=== PATIENT | male | born 1945 | race Caucasian/White ===

== ENCOUNTER 2016-10-10 11:00 | Inpatient (IN) | payer MEDICARE ==
[2016-10-10 11:31] LABS: AUTOMATED BASOPHIL 0.7 % (0-2); AUTOMATED EOSINOPHIL 1.5 % (0-5); AUTOMATED LYMPH 27.5 % (17-44); AUTOMATED MONOCYTE 9.3 % (3-10); MPV 7.2 fL (7.4-10.4)
[2016-10-10 11:39] LABS: BLOOD UREA NITROGEN 42 MG/DL (9-20); CALCIUM 9.5 MG/DL (8.4-10.2); CALCULATED OSMOLALITY 284 MOs/Kg (270-290); CHLORIDE 102 mEq/L (98-107); GLUCOSE 164 MG/DL (70-99); SODIUM LEVEL 140 mEq/L (137-146); TOTAL PROTEIN 8.2 G/DL (6.3-8.2)
[2016-10-10 11:43] LABS: PARTIAL THROMB. TIME 34.8 SEC (22-35); PT-INR 2.7
--- NOTE | 2016-10-10 12:16 | DIRPT ---
CLINICAL DATA: Chest pain presumed cardiac, syncope EXAM: PORTABLE CHEST 1 VIEW COMPARISON: Portable exam 1122 hours compared to 07/14/2016 FINDINGS: LEFT subclavian AICD leads project over RIGHT ventricle and coronary sinus, unchanged. Additional pacing lead projects over SVC, unchanged. Enlargement of cardiac silhouette with pulmonary vascular congestion. Mediastinal contours normal. Lungs clear. No pleural effusion or pneumothorax. IMPRESSION: Enlargement of cardiac silhouette post AICD with lead positions as above. No acute abnormalities. Electronically Signed By: Jono Renner M.D. On: 10/10/2016 12:13
--- NOTE | 2016-10-10 12:16 | EDPRACDOC ---
- General Information Chief Complaint: Neuro Symptoms/Deficits Stated Complaint: HEART ACTING UP PASSED OUT NO CP Time Seen by Provider: 10/10/16 11:40 Information Source: Patient Home Medications: Home Medications Acetaminophen [Tylenol] 325 mg PO Q6H PRN 12/12/13 Amiodarone HCl [Pacerone] 100 mg PO HS 12/12/13 Amiodarone HCl [Pacerone] 200 mg PO QAM 12/12/13 Aspirin (Enteric Coated) [Halfprin] 81 mg PO QAM 12/12/13 Calcium Carbonate/Vitamin D3 [Caltrate w/ Vit D Tab (600mg/400IU)] 1 tab PO QAM 12/12/13 Cholecalciferol (Vitamin D3) [Vitamin D3 (cholecalciferol)] 2,000 units PO QAM 12/12/13 Dextran 70/Hypromellose [Artificials Tears Drops] 1 - 2 drops OU Q3H PRN Digoxin [Lanoxin, Digitek] 125 mcg PO QAM 12/12/13 Diphenhydramine HCl [Benadryl Allergy] 25 mg PO DAILY PRN 12/12/13 Fenofibrate [Lofibra] 160 mg PO BID 12/12/13 Furosemide [Lasix] 20 mg PO HS 12/12/13 Furosemide [Lasix] 40 mg PO QAM 12/12/13 Glimepiride [Amaryl] 4 mg PO BID 12/12/13 Insulin Glargine [Lantus Pen] 20 units SQ 12/12/13 Latanoprost [Xalatan] 1 drop OU 12/12/13 Metoprolol Succinate [Toprol Xl] 100 mg PO 12/12/13 [place]-3 Fatty Acids/Fish Oil [Fish Oil 1,000 mg Softgel] 1,000 mg PO BID Pravastatin [Pravachol] 80 mg PO 12/12/13 Sodium Chloride [Saline Nasal [place]] 1 spray EDU QID PRN 12/12/13 Spironolactone [Aldactone] 25 mg PO QAM 12/12/13 Warfarin Sodium 2 mg PO DAILY #30 tablet 12/13/13 Allergies/Adverse Reactions: Allergies Allergy/AdvReac Type Severity Reaction Status Date / Time prednisone Allergy Unknown Unknown/See Verified 10/10/16 11:09 Comments latex Allergy Rash-Locali Verified 10/10/16 11:09 zed - History of Present Illness Onset: [employer] HPI: PASSED OUT. NO PAIN. AT [facility] WHEN IT HAPPENED. SEE OLD RECORDS. HX OF AFIB AND AICD/PACER. ON COUMADIN AND DIG. Presyncopal phase: Reports: None Postsyncopal phase: Reports: Rapid recovery Prehospital care: Reports: None Relevant History of: Reports: None Improves/Worsens with: improves with: Nothing Associated Signs/Symptoms: Reports: None ED Past Medical History - History Reviewed Yes Nurses notes reviewed and agree except as marked - Patient Medical History Cardiac History: Reports: Atrial Fibrillation, Hypertension, Cardiac Catheterization, Hypercholesterolemia Respiratory History: Reports: Asthma Musculoskeletal History: Reports: Arthritis Psychological History: Denies: Depression Systemic History: Denies: Cancer Surgical History: Reports: Cardiac Catheterization, Tonsillectomy/Adnoidectomy - Family Medical History Reports: Hypertension (sisters, brothers,), Diabetes (sister), Cancer (Mother - breast; sister - lung), Stroke (sister - TIAs), Cardiac Disorders - Social Medical History Smoking Status: Never smoker EDM Review of Systems - Review of Systems ROS Negative Except as Marked: Yes All systems reviewed and were negative except as marked - Physical Exam Constitutional: Alert (Awake), No apparent distress Oriented to: Time, Person, Place Last recorded Vital Signs: Last Vital Signs Temp 97.7 F 10/10/16 11:06 Pulse 74 10/10/16 12:14 Resp 18 10/10/16 11:36 BP 145/67 10/10/16 12:14 Pulse Ox 93 10/10/16 11:36 Oxygen Pulse Oxygen Saturation 93 O2 Device Room Air Oxygen Flow Rate Fraction of Inspired Oxygen ( FIO2) - HEENT Head: Normal ( normocephalic) Eye Exam: Normal (PERRL, EOMI, Sclera white) Oropharynx: Normal (Pharynx:Moist without exudate,Gums-no swelling) Tympanic Membrane: Normal ENT EAC: Normal TMJ: Normal Nose: No Symptoms Reported (septum midline) Neck: Normal (FROM, trachea at midline) - Respiratory/Cardiovascular Respiratory: Normal - CTA (BBS clear to auscultation without adventitious sounds ) Cardiovascular: Normal (RRR without murmur, gallop or rub) - GI Auscultation: Normal (NABS) Palpation: Normal (Soft,No rebound or guarding, non distended) Tenderness: Non tender Fernandez's Sign: Negative - Musculoskeletal Back: Normal (Non-Tender) Extremities: Normal (Normal tone, Pulses 2+ No cyanosis or edema, FROM) - Integumentary Skin: Normal, Warm, Dry Lymphatics: Normal (no adenopathy) - Neurologic Memory Impaired: Normal Motor Function: Normal (Normal tone, Pulses 2+ No cyanosis or edema, FROM) Cranial Nerve: Normal (CN II-X11 intact sensation, strength 5/5) Cerebellar: Normal Mood Description: Normal Perception: Normal - Results 10/10/16 11:16 10/10/16 11:16 WBC 9.9 xk/uL (3.8-10.8) 10/10/16 11:16 RBC 5.66 xM/uL (4.70-6.10) 10/10/16 11:16 Hgb 17.4 g/dL (14.0-18.0) 10/10/16 11:16 Hct 51.7 % (42-52) 10/10/16 11:16 MCV 91 fL (80-94) 10/10/16 11:16 MCH 30.6 pg (27-32) 10/10/16 11:16 MCHC 33.6 g/dl (33-36) 10/10/16 11:16 RDW 14.3 % (11.5-14.5) 10/10/16 11:16 Plt Count 309 xk/uL (130-400) 10/10/16 11:16 MPV 7.2 fL (7.4-10.4) L 10/10/16 11:16 Neut % (Auto) 61.0 % (45-76) 10/10/16 11:16 Lymph % (Auto) 27.5 % (17-44) 10/10/16 11:16 [place] % (Auto) 9.3 % (3-10) 10/10/16 11:16 Eos % (Auto) 1.5 % (0-5) 10/10/16 11:16 Baso % (Auto) 0.7 % (0-2) 10/10/16 11:16 Absolute Neuts (auto) 6.04 xk/uL (1.7-8.2) 10/10/16 11:16 Absolute Lymphs (auto) 2.67 xk/uL (0.65-4.75) 10/10/16 11:16 PT 28.0 SEC (9.2-11.2) H 10/10/16 11:16 INR 2.7 10/10/16 11:16 APTT 34.8 SEC (22-35) 10/10/16 11:16 Sodium 140 mEq/L (137-146) 10/10/16 11:16 Potassium 4.1 mEq/L (3.5-5.1) 10/10/16 11:16 Chloride 102 mEq/L (98-107) 10/10/16 11:16 Carbon Dioxide 23 mMOL/L (22-33) 10/10/16 11:16 Anion Gap 19 mEq/L (8-16) H 10/10/16 11:16 BUN 42 MG/DL (9-20) H 10/10/16 11:16 Creatinine 1.60 MG/DL (0.66-1.25) H 10/10/16 11:16 Estimated GFR (MDRD) 43 mL/min (>=60) L 10/10/16 11:16 Glucose 164 MG/DL (70-99) H 10/10/16 11:16 Calculated Osmolality 284 MOs/Kg (270-290) 10/10/16 11:16 Calcium 9.5 MG/DL (8.4-10.2) 10/10/16 11:16 Total Bilirubin 0.8 MG/DL (0.2-1.3) 10/10/16 11:16 AST 48 IU/L (17-59) 10/10/16 11:16 ALT 46 IU/L (21-72) 10/10/16 11:16 Alkaline Phosphatase 74 IU/L (50-160) 10/10/16 11:16 Troponin I 0.11 ng/mL (<.04) 10/10/16 11:16 Ejq-A-Asrezkmxbcz Pept 1020 pg/mL (0-900) H 10/10/16 11:16 Total Protein 8.2 G/DL (6.3-8.2) 10/10/16 11:16 Albumin 4.5 G/DL (3.5-5.0) 10/10/16 11:16 Lab Results 10/10/16 10/10/16 10/10/16 11:16 11:16 11:16 WBC 9.9 RBC 5.66 Hgb 17.4 Hct 51.7 MCV 91 MCH 30.6 MCHC 33.6 RDW 14.3 Plt Count 309 MPV 7.2 L Neut % (Auto) 61.0 Lymph % (Auto) 27.5 [place] % (Auto) 9.3 Eos % (Auto) 1.5 Baso % (Auto) 0.7 Absolute Neuts (auto) 6.04 Absolute Lymphs (auto) 2.67 PT 28.0 H INR 2.7 APTT 34.8 Sodium 140 Potassium 4.1 Chloride 102 Carbon Dioxide 23 Anion Gap 19 H BUN 42 H Creatinine 1.60 H Estimated GFR (MDRD) 43 L Glucose 164 H Calculated Osmolality 284 Calcium 9.5 Total Bilirubin 0.8 AST 48 ALT 46 Alkaline Phosphatase 74 Troponin I 0.11 Jhc-H-Fyympqteebx Pept 1020 H Total Protein 8.2 Albumin 4.5 - EKG EKG #1 [place]: Normal Rhythm: Paced Block: None Hypertrophy: None ST: Normal Decision Time to Discharge: 12:18 - Departure Yes I personally saw and evaluated the patient. Disposition: Admit IP To This Hospital Condition: Good Final Diagnosis: SYNCOPE, TORSADES Referrals: Gunjan Tatum, CHRISTINA [Primary Care Provider] - One Week Decision to Admit Time: 12:18 ([place]) Decision to admit date: 10/10/16 Decision to admit: from ED - Physician Consulted Cardiology Time Called: 12:26 ([place]
--- NOTE | 2016-10-10 13:06 | PCM.CARDCO ---
Consultation Date: 10/10/16 Requesting Physician: Holden Flores Valve Inspector: Hayden Goldstein Consult Reason: Dysrhythmia - History of Present Illness I was asked to evaluate this gentleman by the emergency room physician Dr. Flores. Patient has history of cardiomyopathy and has a defibrillator. He mentions to me that the defibrillator generator was replaced in June and he sees Dr. Sheth at [facility]. The patient mentions to me that on 2 or 3 occasions he felt lightheaded and he felt that he was not getting any blood to his face and passed out for a second or 2. Fortunately this happened when he was sitting down or lying down and therefore he did not fall on the floor. He is very concerned about these symptoms and at the time of my evaluation is alert awake oriented comfortable and in no distress and his is at the bedside. He tells me that he has active gentleman and denies any chest pain orthopnea or PND. EKG strips revealed nonsustained ventricular tachycardia with the suggestion of torsade and therefore he was admitted and the hospitalist service was called and I was consulted on this patient. - Past Medical and Surgical History Cardiac History: Reports: Atrial Fibrillation, Hypertension, Cardiac Catheterization, Hypercholesterolemia Respiratory History: Reports: Asthma Systemic History: Denies: Cancer Musculoskeletal History: Reports: Arthritis Psychological History: Denies: Depression Past Surgical History: Reports: Cardiac Catheterization, Tonsillectomy/ Adnoidectomy Allergies prednisone Allergy (Unknown, Verified 10/10/16 11:09) Unknown/See Comments per pt "memory loss" latex Allergy (Verified 10/10/16 11:09) Rash-Localized Home Medications Acetaminophen [Tylenol] 975 mg PO Q4H PRN 12/12/13 Amiodarone HCl [Pacerone] 200 mg PO QAM 12/12/13 Aspirin (Enteric Coated) [Halfprin] 81 mg PO QAM 12/12/13 Calcium Carbonate/Vitamin D3 [Caltrate w/ Vit D Tab (600mg/400IU)] 1 tab PO QAM 12/12/13 Cholecalciferol (Vitamin D3) [Vitamin D3 (cholecalciferol)] 2,000 units PO QAM 12/12/13 Dextran 70/Hypromellose [Artificials Tears Drops] 1 - 2 drops OU Q3H PRN Digoxin [Lanoxin, Digitek] 125 mcg PO QAM 12/12/13 Diphenhydramine HCl [Benadryl Allergy] 25 mg PO DAILY PRN 12/12/13 Fenofibrate [Lofibra] 160 mg PO BID 12/12/13 Furosemide [Lasix] 20 mg PO HS 12/12/13 Furosemide [Lasix] 40 mg PO QAM 12/12/13 Glimepiride [Amaryl] 4 mg PO BID 12/12/13 Insulin Glargine [Lantus Pen] 40 units SQ BID 12/12/13 Latanoprost [Xalatan] 1 drop OU HS 12/12/13 [place]-3 Fatty Acids/Fish Oil [Fish Oil 1,000 mg Softgel] 1,000 mg PO BID Pravastatin [Pravachol] 80 mg PO HS 12/12/13 Sodium Chloride [Saline Nasal [place]] 1 spray EDU QID PRN 12/12/13 Spironolactone [Aldactone] 25 mg PO QAM 12/12/13 Metformin HCl 500 mg PO DAILY 10/10/16 Warfarin Sodium [Coumadin] 3 mg PO SUTUTHSA 10/10/16 Warfarin Sodium [Coumadin] 4 mg PO MOWEFR 10/10/16 - Social History Smoking Status: Never smoker - Family History Reports: Hypertension (sisters, brothers,), Diabetes (sister), Cancer (Mother - breast; sister - lung), Stroke (sister - TIAs), Cardiac Disorders - Physical Exam Constitutional: Alert (Awake), No apparent distress Oriented to: Time, Person, Place Exam: Last Vital Signs Temp 97.7 F 10/10/16 11:06 Pulse 64 10/10/16 12:32 Resp 18 10/10/16 12:32 BP 123/58 L 10/10/16 12:32 Pulse Ox 92 10/10/16 12:32 Intake & Output 10/09/16 10/10/16 10/10/16 23:59 07:59 15:59 Patient's weight 106.141 kg - HEENT Head: Normal ( normocephalic) Eye: Normal (PERRL, EOMI, Sclera white) Oropharynx: Normal (Pharynx:Moist without exudate,Gums-no swelling) Tympanic Membrane: Normal ENT EAC: Normal TMJ: Normal Nose: No Symptoms Reported (septum midline) - Respiratory/Cardiovascular Respiratory: Normal - CTA (BBS clear to auscultation without adventitious sounds ) Cardiovascular: Other (S1-S2 heard 2/6 systolic murmur at the apex. Lungs bilateral air entry.) - GI Auscultation: Normal (NABS) Palpation: Normal (Soft,No rebound or guarding, non distended) Tenderness: Non tender - Musculoskeletal Back: Normal (Non-Tender) Extremities: Normal (Normal tone, Pulses 2+ No cyanosis or edema, FROM) - Integumentary Skin: Normal, Warm, Dry Lymphatics: Normal (no adenopathy) - Neurologic Memory Impaired: Normal Cerebellar: Normal Mood Description: Normal Perception: Normal - Other Exam Other Exam Findings: Abdomen nontender. No cyanosis clubbing or pedal edema on the extremity evaluation. Neurological and musculoskeletal examination nonfocal. - Assessment/Plan (1) Syncope R55 - SYNCOPE AND COLLAPSE Acute (2) Atrial fibrillation I48.91 - UNSPECIFIED ATRIAL FIBRILLATION Acute Comment: Patient is on anticoagulation and this is therapeutic at this time. His heart rates are under fair control. I will obtain records from [facility] from his system safety manager to assess these issues. (3) Nonsustained ventricular tachycardia I47.2 - VENTRICULAR TACHYCARDIA Acute Comment: We will obtain a digoxin level. His magnesium level is fine. Beta-christina. (4) Torsades de pointes I47.2 - VENTRICULAR TACHYCARDIA Acute Comment: Patient's magnesium is fine and we will monitor his rhythm. I will stop his digoxin at this time and will get a digoxin level in the morning. (5) Cardiac defibrillator in situ Acute Comment: His defibrillator will have to be assessed. We will get the corporate sales representative from [employer] to do this and we will get in touch with his director of agriculture for any suggestions in the morning. Also if he has recurrent episodes of ventricular arrhythmias I will initiate him on amiodarone therapy though I will not myers to do it at this time in the absence of recurrent arrhythmic issues.
[2016-10-10] MEDS ORDERED: D5W IV ONE (13:12)
[2016-10-10] MEDS ORDERED: AMIODARONE IV ONE (13:12)
[2016-10-10] MEDS ORDERED: GLUCOSE (ORAL GEL) 15 GM TUBE PO PRN (13:38)
[2016-10-10] MEDS ORDERED: GLUCAGON 1 MG VIAL SQ PRN (13:38)
[2016-10-10] MEDS ORDERED: DEXTROSE 25 GM/50 ML PFS IV PRN (13:38)
[2016-10-10] MEDS ORDERED: ACETAMINOPHEN 325 MG/TAB TABLET PO PRN (13:40)
[2016-10-10] MEDS ORDERED: ARTIFICIAL TEARS OPH SOLN 15 ML OU PRN (13:50)
[2016-10-10] MEDS ORDERED: NS 1,000 ML IV SCH (14:00)
[2016-10-10] MEDS ORDERED: GLARGINE INSULIN (LANTUS) 100 UNITS/ML PEN SQ SCH (14:00)
[2016-10-10] MEDS ORDERED: LATANOPROST 0.005% OPHTH SOLN 2.5 ML OU SCH (14:00)
[2016-10-10 14:24] LABS: RBC/URINE 0-2 (0-2); WBC/URINE 0-2 (0-2)
[2016-10-10 14:25] LABS: NITRITE/URINE NEG (NEGATIVE); URINE OCCULT BLOOD NEG (NEG/TRACE)
[2016-10-10 15:09] VITALS: BMI 31.6
[2016-10-10] MEDS ORDERED: Vaccine Screening Complete SCH (16:00)
[2016-10-10] MEDS: FUROSEMIDE 20 MG TAB PO SCH (16:16)
[2016-10-10] MEDS: This patient is receiving warfarin therapy SCH (16:16)
[2016-10-10] MEDS: REGULAR INSULIN 100 UNITS/ML - 3 ML VIAL SQ SCH ×2 (16:17→21:28)
[2016-10-10] MEDS: GLIMEPIRIDE 4 MG TAB PO SCH (16:17)
[2016-10-10] MEDS: OMEGA-3-ACID ETHYL ESTERS 1000 MG CAP PO SCH (16:18)
[2016-10-10] MEDS: FENOFIBRATE 145 MG TAB PO SCH (16:19)
--- NOTE | 2016-10-10 16:42 | HISTPHYS ---
- Chief Complaint syncope - History of Present Illness 71 yowm presented emergency room early on today for evaluation of syncopal episode. Patient states that the last night fairly abruptly felt dizzy lightheaded sleepy and passed out for brief period of time. Early on today while it chair each all of the sudden he felt like there was no blood coming to his head and he passed out. He was sitting so he did not fall to the ground. Family reports no seizure activity no urine or fecal incontinence. On detailed questioning patient denies any palpitations chest pain all difficulties breathing preceding events. He denies any discharges from defibrillator either. Patient was brought to emergency room for evaluation and once on the monitor he was found to have runs of polymorphic VT in the form of torsade de [place]. Medical consultation was phoned in for inpatient treatment. - Medical History Cardiac History: Reports: Hypertension, Congestive Heart Failure, Cardiac Catheterization, Valvular Heart Disease, Syncope. Denies: Heart Attack Respiratory History: Reports: Asthma, COPD, Emphysema GI/ History: Reports: Renal Disease, Gastroesophageal Reflux, BPH Musculoskeletal History: Reports: Arthritis Systemic History: Reports: Diabetes Neurological History: Reports: No Significant History. Denies: Cerebrovascular Accident, Seizures Psychological History: Reports: Anxiety. Denies: Depression - Surgical History Reports: Cardiac Catheterization, Tonsillectomy/Adnoidectomy, Other (neck, cts, feet, shoulder, knee) - Medictions/Allergies Allergies prednisone Allergy (Unknown, Verified 10/10/16 11:09) Unknown/See Comments per pt "memory loss" latex Allergy (Verified 10/10/16 11:09) Rash-Localized Current Medication List: Reviewed Home Medications Acetaminophen [Tylenol] 975 mg PO Q4H PRN 12/12/13 Amiodarone HCl [Pacerone] 200 mg PO QAM 12/12/13 Aspirin (Enteric Coated) [Halfprin] 81 mg PO QAM 12/12/13 Calcium Carbonate/Vitamin D3 [Caltrate w/ Vit D Tab (600mg/400IU)] 1 tab PO QAM 12/12/13 Cholecalciferol (Vitamin D3) [Vitamin D3 (cholecalciferol)] 2,000 units PO QAM 12/12/13 Dextran 70/Hypromellose [Artificials Tears Drops] 1 - 2 drops OU Q3H PRN Digoxin [Lanoxin, Digitek] 125 mcg PO QAM 12/12/13 Diphenhydramine HCl [Benadryl Allergy] 25 mg PO DAILY PRN 12/12/13 Fenofibrate [Lofibra] 160 mg PO BID 12/12/13 Furosemide [Lasix] 20 mg PO HS 12/12/13 Furosemide [Lasix] 40 mg PO QAM 12/12/13 Glimepiride [Amaryl] 4 mg PO BID 12/12/13 Insulin Glargine [Lantus Pen] 40 units SQ BID 12/12/13 Latanoprost [Xalatan] 1 drop OU HS 12/12/13 [place]-3 Fatty Acids/Fish Oil [Fish Oil 1,000 mg Softgel] 1,000 mg PO BID Pravastatin [Pravachol] 80 mg PO HS 12/12/13 Sodium Chloride [Saline Nasal [place]] 1 spray EDU QID PRN 12/12/13 Spironolactone [Aldactone] 25 mg PO QAM 12/12/13 Metformin HCl 500 mg PO DAILY 10/10/16 Warfarin Sodium [Coumadin] 3 mg PO SUTUTHSA 10/10/16 Warfarin Sodium [Coumadin] 4 mg PO MOWEFR 10/10/16 - Family History Reports: Hypertension (sisters, brothers,), Diabetes (sister), Cancer (Mother - breast; sister - lung), Stroke (sister - TIAs), Cardiac Disorders - Social History Travel Outside of [place] in the Last 3 Months?: No Lives: With Family Smoking Status: Former smoker - Review of Systems Constitutional: Diaphoresis, Fatigue, Weakness Eyes: No Symptoms Reported Ears: No Symptoms Reported Nose: No Symptoms Reported Mouth: No Symptoms Reported Throat/Neck: No Symptoms Reported Respiratory: Dyspnea Cardiovascular: Palpitations, Syncope Gastrointestinal: Constipation, Heartburn Genitourinary: Nocturia Neurological: Dizziness, Numbness, Weakness Musculoskeletal:: Arthritis, Neck Stiffness, Joint Pain Integumentary: No Symptoms Reported Allergic/Immunologic: No Symptoms Reported Hematologic: No Symptoms Reported Endocrine: No Symptoms Reported Psychiatric: No Symptoms Reported - Physical Exam Vital Signs: Initial Vitals Temperature 97.7 F 10/10/16 11:06 Pulse Rate 69 10/10/16 11:06 Respiratory Rate 16 10/10/16 11:06 Blood Pressure 163/79 10/10/16 11:06 Pulse Oxygen Saturation 96 10/10/16 11:06 Constitutional: Alert Oriented to: Time, Person, Place - HEENT Head: Normal Eye: Normal Oropharynx: Normal ENT EAC: Normal TMJ: Normal Nose: No Symptoms Reported Respiratory: Diminished, Rhonchi Cardiovascular: Normal, Systolic murmur - GI Auscultation: Normal Palpation: Normal Tenderness: Non tender Rectal Exam: Deferred - Exam Deferred: Yes - Musculoskeletal Back: Normal Extremities: Normal, Edema Spine: limited range of motion - Integumentary Skin: Normal, Warm, Dry Lymphatics: Normal - Neurologic Memory Impaired: Normal Motor Function: Normal Cranial Nerve: Normal Cerebellar: Ataxia Mood Description: Anxious Thought: Coherent Perception: Normal - Focused CV Perfusion Exam Vital Signs: Last Vital Signs Temp 97.7 F 10/10/16 16:00 Pulse 72 10/10/16 16:00 Resp 18 10/10/16 16:00 BP 136/60 10/10/16 16:00 Pulse Ox 95 10/10/16 16:00 - Diagnostic Findings Last Vital Signs Temp 97.7 F 10/10/16 16:00 Pulse 72 10/10/16 16:00 Resp 18 10/10/16 16:00 BP 136/60 10/10/16 16:00 Pulse Ox 95 10/10/16 16:00 Allergies prednisone Allergy (Unknown, Verified 10/10/16 11:09) Unknown/See Comments per pt "memory loss" latex Allergy (Verified 10/10/16 11:09) Rash-Localized Initial Vitals Temperature 97.7 F 10/10/16 11:06 Pulse Rate 69 10/10/16 11:06 Respiratory Rate 16 10/10/16 11:06 Blood Pressure 163/79 10/10/16 11:06 Pulse Oxygen Saturation 96 10/10/16 11:06 10/10/16 11:16 10/10/16 11:16 Abnormal Lab Results 10/10/16 10/10/16 10/10/16 11:16 11:16 11:16 MPV 7.2 L PT 28.0 H Anion Gap 19 H BUN 42 H Creatinine 1.60 H Estimated GFR (MDRD) 43 L Glucose 164 H POC Capillary Glucose Magnesium Vvo-T-Twgngkmlpmi Pept 1020 H 10/10/16 10/10/16 11:16 15:43 MPV PT Anion Gap BUN Creatinine Estimated GFR (MDRD) Glucose POC Capillary Glucose 215 H Magnesium 2.40 H [id number]-N-Zhhjhwflaqv Pept Patient Name: ZULEYKA MCLAIN LOC: ED : 1945 AGE: 71 Order Date:10/10/16 Date of Service: Report # [id number] Ord Physician: Gail Flores MD Exam # [id number] Emergency Physician: Gail Flores MD Exam(s): [id number] RAD/DG CHEST PORTABLE CLINICAL DATA: Chest pain presumed cardiac, syncope EXAM: PORTABLE CHEST 1 VIEW COMPARISON: Portable exam 1122 hours compared to 07/14/2016 FINDINGS: LEFT subclavian AICD leads project over RIGHT ventricle and coronary sinus, unchanged. Additional pacing lead projects over SVC, unchanged. Enlargement of cardiac silhouette with pulmonary vascular congestion. Mediastinal contours normal. Lungs clear. No pleural effusion or pneumothorax. IMPRESSION: Enlargement of cardiac silhouette post AICD with lead positions as above. No acute abnormalities. Electronically Signed By: Jono Renner M.D. - Assessment (1) DM2 (diabetes mellitus, type 2) E11.9 - TYPE 2 DIABETES MELLITUS WITHOUT COMPLICATIONS Chronic Present on Admission: Yes Qualifiers: Diabetes mellitus complication status: with kidney complications Chronic kidney disease stage: stage 3 (moderate) Continue Lantus, ADA diet and sliding scale regular insulin. Given renal sufficiency will hold metformin (2) Nonsustained ventricular tachycardia I47.2 - VENTRICULAR TACHYCARDIA Acute Present on Admission: Yes As per cardiology. Keep K more than 4 magnesium more than 2. Echo will be repeated continue amiodarone (3) Atrial fibrillation I48.91 - UNSPECIFIED ATRIAL FIBRILLATION Chronic Present on Admission: Yes Qualifiers: Atrial fibrillation type: chronic Qualified Code(s): I48.2 - Chronic atrial fibrillation Rate controlled, continue medical therapy. As per Cardiology (4) Dyslipidemia E78.5 - HYPERLIPIDEMIA, UNSPECIFIED Chronic Present on Admission: Yes Continue statin and fish oil (5) CKD (chronic kidney disease) N18.9 - CHRONIC KIDNEY DISEASE, UNSPECIFIED Chronic Present on Admission: Yes Qualifiers: Chronic kidney disease stage: stage 3 (moderate) Qualified Code(s): N18.3 - Chronic kidney disease, stage 3 (moderate) Monitor renal function maintain hydration avoid any nephrotoxins. (6) Syncope R55 - SYNCOPE AND COLLAPSE Acute Present on Admission: Yes Qualifiers: Syncope type: unspecified Qualified Code(s): R55 - Syncope and collapse Most likely due to cardiac arrhythmia. Continue telemetry monitoring (7) COPD (chronic obstructive pulmonary disease) J44.9 - CHRONIC OBSTRUCTIVE PULMONARY DISEASE, UNSPECIFIED Chronic Present on Admission: Yes Qualifiers: COPD type: unspecified COPD Qualified Code(s): J44.9 - Chronic obstructive pulmonary disease, unspecified Stable from pulmonary perspective. Monitor pulmonary status continue p.r.n. nebs Case Care Discussed with: Patient, Consultants, Family, Nursing Staff Total Time: 60 min . Critical Care: No Code: 73114
[2016-10-10] MEDS ORDERED: WARFARIN EDUCATION DOCUMENTATION ONE (18:00)
[2016-10-10] MEDS ORDERED: BISACODYL 5 MG TAB PO PRN (18:57)
[2016-10-10] MEDS ORDERED: Docusate Sodium 100 MG CAP PO PRN (18:57)
[2016-10-10] MEDS ORDERED: ONDANSETRON HCL 4 MG/2 ML VIAL IV PRN (18:57)
[2016-10-10] MEDS ORDERED: SENNA CONCENTRATE TAB PO PRN (18:57)
[2016-10-10] MEDS ORDERED: GUAIFEN 100 MG-DEXTROMETH 10 MG PER 5 ML PO PRN (18:57)
[2016-10-10] MEDS ORDERED: BENZONATATE 100 MG PERLES PO PRN (18:57)
[2016-10-10] MEDS ORDERED: SIMETHICONE 80 MG TAB PO PRN (18:57)
[2016-10-10] MEDS ORDERED: PROMETHAZINE 25 MG/ML VIAL IV PRN (18:57)
[2016-10-10] MEDS: TEMAZEPAM 15 MG CAP PO PRN (21:25)
[2016-10-10] MEDS: GLARGINE INSULIN (LANTUS) 100 UNITS/ML PEN SQ SCH (21:26)
[2016-10-10] MEDS: LATANOPROST 0.005% OPHTH SOLN 2.5 ML OU SCH (21:27)
[2016-10-10] MEDS: PRAVASTATIN 80 MG TABLET PO SCH (21:27)
[2016-10-11 03:06] LABS: PT-INR 2.7
[2016-10-11 03:09] LABS: BLOOD UREA NITROGEN 38 MG/DL (9-20); CALCIUM 9.1 MG/DL (8.4-10.2); CALCULATED OSMOLALITY 275 MOs/Kg (270-290); CHLORIDE 102 mEq/L (98-107); GLUCOSE 96 MG/DL (70-99); SODIUM LEVEL 138 mEq/L (137-146)
[2016-10-11] MEDS: REGULAR INSULIN 100 UNITS/ML - 3 ML VIAL SQ SCH ×4 (06:07→22:25)
[2016-10-11] MEDS ORDERED: MetFORMIN 500 MG IMMED RELEASE TAB PO SCH (07:00)
[2016-10-11] MEDS: GLIMEPIRIDE 4 MG TAB PO SCH ×2 (07:17→17:28)
--- NOTE | 2016-10-11 07:42 | PCM.CARD ---
- Subjective Reason for visit: For ventricular tachycardia, patient was seen along with the railroad engineer from the pacemaker [employer] company and reprogrammed and conference call to . Regarding pacemaker ICD programming and plans revision of atrial lead. Current Assessment: No New Symptoms. negative: Chest Pain, Nausea, Orthopnea, Shortness of Breath, Vomiting Vital Signs: Last Vital Signs Temp 97.7 F 10/11/16 07:08 Pulse 68 10/11/16 07:08 Resp 18 10/11/16 07:08 BP 126/73 10/11/16 07:08 Pulse Ox 94 10/11/16 07:08 Respiratory: Diminished Jugular Vein Distention: None Pulse Rhythm: Regular EKG Rhythm: Sinus Rhythm (No edema) Lab/DI Results Reviewed: Laboratory Tests 10/10/16 10/10/16 10/10/16 11:16 11:16 11:16 WBC 9.9 Hgb 17.4 Hct 51.7 INR Potassium Creatinine Magnesium Troponin I 0.11 Digoxin 0.90 10/10/16 10/10/16 10/11/16 14:40 17:10 02:25 WBC Hgb Hct INR Potassium 4.2 Creatinine 1.50 H Magnesium 2.40 H Troponin I 0.08 0.07 Digoxin 10/11/16 02:25 WBC Hgb Hct INR 2.7 Potassium Creatinine Magnesium Troponin I Digoxin preliminary echo EF 30-35%. office records include cardiomyopathy, Bi V pacemaker/ICD, [employer]. PAF and VT on amiodarone. - Assessment/Plan (1) Biventricular cardiac pacemaker in situ Chronic Z95.0 - PRESENCE OF CARDIAC PACEMAKER Present on Admission: Yes Comment/Plan: His device interrogated, atrial lead is nonfunctional base rate was increased detection was added to rates down to 150 ventricular. If he transfer to [facility] tomorrow for consideration of revision of his atrial lead which is nonfunctional and inhibiting the benefits of biventricular pacing. His echocardiogram shows marked dyssynchrony low ejection fraction moderate aortic stenosis and moderate aortic regurgitation. (2) Nonsustained ventricular tachycardia Acute I47.2 - VENTRICULAR TACHYCARDIA Present on Admission: Yes Comment/Plan: His device shows that he had 2 episodes of sustained a arrhythmia 1 with defibrillation with anti tachycardia pacing corresponding to his clinically events of syncope. He received extra amiodarone yesterday IV, level ordered I will increase his oral amiodarone to 400 mg twice daily and referral for EP evaluation tomorrow. He does occasionally take [id number] Benadryl I have asked him to stop his again be proarrhythmic. (3) Atrial fibrillation Chronic I48.91 - UNSPECIFIED ATRIAL FIBRILLATION Present on Admission: Yes chronic I48.2 - Chronic atrial fibrillation
[2016-10-11] MEDS: FUROSEMIDE 40 MG TAB PO SCH (08:56)
[2016-10-11] MEDS: SPIRONOLACTONE 25 MG TAB PO SCH (08:56)
[2016-10-11] MEDS: FENOFIBRATE 145 MG TAB PO SCH ×2 (08:56→17:28)
[2016-10-11] MEDS: OMEGA-3-ACID ETHYL ESTERS 1000 MG CAP PO SCH ×2 (08:56→17:28)
[2016-10-11] MEDS: DIGOXIN 0.125 MG TAB PO SCH (08:57)
[2016-10-11] MEDS: GLARGINE INSULIN (LANTUS) 100 UNITS/ML PEN SQ SCH ×2 (08:57→22:24)
[2016-10-11] MEDS ORDERED: AMIODARONE 200 MG TAB PO SCH (09:00)
--- NOTE | 2016-10-11 11:10 | CAPUECHO ---
INDICATION: CARDIOMYOPATHY HEIGHT: 180.3 cm (5 ft 11.0 in) WEIGHT: 106.1 kg (234.0 lbs) BP: 100/51 BSA: 2.96661 m MEASUREMENTS 2D RVIDd: 3.5 cm LVOT Diam: 2.1 cm LA Diam: 4.7 cm EF Biplane: 33.01 % LAESV MOD A4C: 121.4 ml LAESV MOD A2C: 117.7 ml LAESV Index (A-L): 59.29 ml/m M-MODE IVSd: 1.2 cm LVIDd: 6.1 cm LVPWd: 1.2 cm LVIDs: 5.1 cm EF(Teich): 32 % DOPPLER MV E Kole: 1.22 m/s MV A Kole: 0.00 m/s MV PHT: 47.38 ms MVA By PHT: 4.64 cm LVOT Vmax: 0.85 m/s AV Vmax: 2.79 m/s TR Vmax: 2.70 m/s TR maxP mmHg RVSP: 39.20 mmHg FINDINGS ------- Procedure:2D images, m-mode, color and spectral Doppler were obtained and reviewed. Study quality:This was a technically adequate study. Left Ventricle:The left ventricle is mildly dilated. There is mild concentric left ventricular hyp ertrophy. There is severe global hypokinesis of LV . Overall left ventricular systolic function is moderate-severely impaired with, an EF between 30 - 35 %. There is paradoxical/dysynergic septa l motion consistent with left bundle branch block. Right Ventricle:The right ventricle is normal in size and function. Pacer wire present. Left Atrium:The left atrium is moderately dilated. Left atrium is severely dilated by volume. Right Atrium:The right atrium is normal in size and function. Electronic pacemaker lead seen in th e right atrial cavity. Aortic Valve:Aortic valve is trileaflet and is moderately thickened. There is mild aortic regurgit ation. There is moderate aortic stenosis present. Peak/mean gradient across the valve is {31 mmh g maxPG} / {21mmhg meanPG}. Mitral Valve:Normal appearing mitral valve. Mild mitral annular calcification present. Moderate mitral regurgitation is present. Tricuspid Valve:The tricuspid valve appears structurally normal. Mild tricuspid regurgitation pres ent. The right ventricular systolic pressure, as measured by Doppler, is 39 mmhg}. Pulmonic Valve:The pulmonic valve is normal. Trace/mild (physiologic) pulmonic regurgitation. Aorta:The aortic root, ascending aorta and aortic arch appear normal. IVC:Normal inferior vena cava with normal inspiratory collapse. Pericardium:There is no pericardial effusion. CONCLUSIONS 1. There is severe global hypokinesis of LV . 2. Overall left ventricular systolic function is moderate-severely impaired with, an EF between 30 - 35 %. 3. There is paradoxical/dysynergic septal motion consistent with left bundle branch block. 4. There is mild aortic regurgitation. 5. There is moderate aortic stenosis present. 6. Moderate mitral regurgitation is present. Electronically Signed By: Juan Noyola MD, FACC Electronically Signed On: 10:46:15
[2016-10-11] MEDS: CHOLECALCIFEROL 1000 UNITS TAB PO SCH (12:30)
[2016-10-11] MEDS: CALCIUM CARBONATE + VITAMIN D 500 MG TAB PO SCH (12:30)
--- NOTE | 2016-10-11 13:20 | GENMEDPROG ---
Subjective Note: Patient in bed responsive follows commands. Denies and difficulties breathing PND orthopnea. No syncope or near syncope. No discharges from defibrillator. Blood sugar under control no hypoglycemia. Notes Reviewed: Yes Events from last night noted and discussed with Clinical Staff Current Medication List: Reviewed Currently: Reports: QUINTERO, Reflux Sx DVT Prophylaxis: Yes - Physical Examination Vital Signs and I&O: Last Vital Signs Temp 97.8 F 10/11/16 11:12 Pulse 75 10/11/16 12:00 Resp 18 10/11/16 11:12 BP 152/69 10/11/16 11:12 Pulse Ox 94 10/11/16 11:12 Oxygen Pulse Oxygen Saturation 94 O2 Device Room Air Oxygen Flow Rate Fraction of Inspired Oxygen ( FIO2) Intake & Output 10/08/16 10/09/16 10/10/16 10/11/16 23:59 23:59 23:59 23:59 Intake Total 360 240 Output Total 975 1550 Balance -615 -1310 Patient's weight 103.107 kg 102.829 kg General: Alert, Oriented x3, Cooperative, No acute distress HEENT: Normal, PERRLA, EOMI, Anicteric Sclera Neck: Non-tender, Limited range of motion Lymphatics: Normal Respiratory: Diminished, Rhonchi Cardiovascular: Regular rate, Normal S1, Normal S2, Murmurs GI: Normal bowel sounds, Soft, Non tender, No hepatospenomegaly, No masses, Obese Extremities/Musculoskeletal: Edema, DJD Skin: Warm,Dry and Intact, No rashes, No breakdown, No significant lesion Neurological: Normal speech, Cranial nerves 3-12 NL Psych/Mental Status: Anxious Lab/DI/Studies Reviewed: Allergies prednisone Allergy (Unknown, Verified 10/10/16 11:09) Unknown/See Comments per pt "memory loss" latex Allergy (Verified 10/10/16 11:09) Rash-Localized Last Vital Signs Temp 97.8 F 10/11/16 11:12 Pulse 75 10/11/16 12:00 Resp 18 10/11/16 11:12 BP 152/69 10/11/16 11:12 Pulse Ox 94 10/11/16 11:12 10/10/16 11:16 10/11/16 02:25 - Assessment (1) DM2 (diabetes mellitus, type 2) Chronic E11.9 - TYPE 2 DIABETES MELLITUS WITHOUT COMPLICATIONS Qualifiers: Diabetes mellitus complication status: with kidney complications Chronic kidney disease stage: stage 3 (moderate) Comment/Plan: Blood sugar under control, on oral agents ADA diet and sliding scale regular insulin.. No episodes of hypoglycemia. (2) Nonsustained ventricular tachycardia Acute I47.2 - VENTRICULAR TACHYCARDIA Comment/Plan: As per cardiology. Keep K more than 4 magnesium more than 2. Really loaded with amiodarone. No further episodes of torsade (3) Atrial fibrillation Chronic I48.91 - UNSPECIFIED ATRIAL FIBRILLATION Qualifiers: Atrial fibrillation type: chronic Qualified Code(s): I48.2 - Chronic atrial fibrillation Comment/Plan: Rate controlled, continue medical therapy. As per Cardiology (4) Dyslipidemia Chronic E78.5 - HYPERLIPIDEMIA, UNSPECIFIED Comment/Plan: Continue statin and fish oil (5) CKD (chronic kidney disease) Chronic N18.9 - CHRONIC KIDNEY DISEASE, UNSPECIFIED Qualifiers: Chronic kidney disease stage: stage 3 (moderate) Qualified Code(s): N18.3 - Chronic kidney disease, stage 3 (moderate) Comment/Plan: Monitor renal function maintain hydration avoid any nephrotoxins. (6) Syncope Acute R55 - SYNCOPE AND COLLAPSE Qualifiers: Syncope type: unspecified Qualified Code(s): R55 - Syncope and collapse Comment/Plan: Most likely due to cardiac arrhythmia. Continue telemetry monitoring (7) COPD (chronic obstructive pulmonary disease) Chronic J44.9 - CHRONIC OBSTRUCTIVE PULMONARY DISEASE, UNSPECIFIED Qualifiers: COPD type: unspecified COPD Qualified Code(s): J44.9 - Chronic obstructive pulmonary disease, unspecified Comment/Plan: Stable from pulmonary perspective. Monitor pulmonary status continue p.r.n. nebs (8) Cardiac defibrillator in situ Chronic Comment/Plan: Lead malfunction. Plan as per Cardiology/EP. (9) CHF (congestive heart failure) Acute I50.9 - HEART FAILURE, UNSPECIFIED Qualifiers: Congestive heart failure type: systolic Congestive heart failure chronicity : acute on chronic Qualified Code(s): I50.23 - Acute on chronic systolic ( congestive) heart failure Comment/Plan: Echo shows EF between 30 and 35% with global LV hypokinesis and dyssynergic septal motion. Continue diuretic and salt restriction. Monitor weight. Compensated. Case Care Discussed with: Patient, Consultants, Family Education/Counseling Given To: Patient, Family Member Education/Counseling Given Regarding: Diagnosis, Treatment, Prognosis, Follow Up Total Time: 45 min . Critical Care: No Code: 33764 (12+)
[2016-10-11 14:57] LABS: hTSH 1.88 uIU/mL (0.5-4.67)
[2016-10-11] MEDS: FUROSEMIDE 20 MG TAB PO SCH (17:28)
[2016-10-11] MEDS: This patient is receiving warfarin therapy SCH (17:30)
[2016-10-11] MEDS ORDERED: WARFARIN 4 MG TAB PO SCH (18:00)
[2016-10-11] MEDS: AMIODARONE 200 MG TAB PO SCH (22:21)
[2016-10-11] MEDS: PRAVASTATIN 80 MG TABLET PO SCH (22:21)
[2016-10-11] MEDS: TEMAZEPAM 15 MG CAP PO PRN (22:21)
[2016-10-11] MEDS: LATANOPROST 0.005% OPHTH SOLN 2.5 ML OU SCH (22:22)
[2016-10-12 05:41] LABS: PT-INR 2.1
[2016-10-12 05:52] LABS: BLOOD UREA NITROGEN 36 MG/DL (9-20); CALCIUM 9.1 MG/DL (8.4-10.2); CALCULATED OSMOLALITY 275 MOs/Kg (270-290); CHLORIDE 103 mEq/L (98-107); GLUCOSE 109 MG/DL (70-99); SODIUM LEVEL 138 mEq/L (137-146)
[2016-10-12] MEDS: GLIMEPIRIDE 4 MG TAB PO SCH (06:28)
[2016-10-12] MEDS: REGULAR INSULIN 100 UNITS/ML - 3 ML VIAL SQ SCH ×2 (06:28→12:33)
--- NOTE | 2016-10-12 07:48 | PCM.CARD ---
- Subjective Reason for visit: For cardiomyopathy and ventricular tachycardia ventricular fibrillation. It is anticipated be transfer to [facility] about 12 noon today Current Assessment: No New Symptoms. negative: Chest Pain, Dizzines, Orthopnea , Palpitations, Shortness of Breath His ICD pacemaker is interrogated yesterday, therapy is not optimal because of failure of the atrial lead, his ejection fraction is reduced the range of 30 35 % by echocardiogram and after discussion with EP be transfer to [facility] for revision of his pacemaker tomorrow to allow for biventricular pacing. Vital Signs: Last Vital Signs Temp 97.5 F 10/12/16 04:00 Pulse 65 10/12/16 06:28 Resp 18 10/12/16 04:00 BP 96/54 L 10/12/16 04:00 Pulse Ox 93 10/12/16 04:00 Respiratory: Diminished Jugular Vein Distention: None Pulse Rhythm: Regular EKG Rhythm: Sinus Rhythm EKG Ectopy: negative: Runs >10 beats Heart Sounds: Distant. negative: S3, Murmur Lab/DI Results Reviewed: Laboratory Tests 10/10/16 10/12/16 11:16 04:50 Potassium 4.1 Creatinine 1.50 H Magnesium 2.50 H Digoxin 0.90 - Assessment/Plan (1) Biventricular cardiac pacemaker in situ Chronic Z95.0 - PRESENCE OF CARDIAC PACEMAKER Present on Admission: Yes Comment/Plan: Plan for transfer to [facility] revision of atrial lead. (2) Nonsustained ventricular tachycardia Acute I47.2 - VENTRICULAR TACHYCARDIA Present on Admission: Yes Comment/Plan: Amiodarone level pending, empirically have placed him on 400 mg twice daily. Further recommendations from EP who diuretics his therapy (3) Atrial fibrillation Chronic I48.91 - UNSPECIFIED ATRIAL FIBRILLATION Present on Admission: Yes chronic I48.2 - Chronic atrial fibrillation Comment/Plan: Rate controlled, warfarin is on hold in anticipation of revision of pacemaker tomorrow. Continue current treatment which includes digoxin with therapeutic level. He is not on a beta-christina I will start a low-dose of metoprolol with his borderline blood pressure and despite a low ejection fraction hold off and Dez and Arb at this time and continue spironolactone.
[2016-10-12] MEDS: AMIODARONE 200 MG TAB PO SCH (08:21)
[2016-10-12] MEDS: DIGOXIN 0.125 MG TAB PO SCH (08:21)
[2016-10-12] MEDS: FENOFIBRATE 145 MG TAB PO SCH (08:21)
[2016-10-12] MEDS: OMEGA-3-ACID ETHYL ESTERS 1000 MG CAP PO SCH (08:21)
[2016-10-12] MEDS: SPIRONOLACTONE 25 MG TAB PO SCH (08:21)
[2016-10-12] MEDS: FUROSEMIDE 40 MG TAB PO SCH (08:22)
--- NOTE | 2016-10-12 08:51 | PCM.DCS92 ---
- Final/Secondary Discharge Diagnosis (1) Torsades de pointes Acute I47.2 - VENTRICULAR TACHYCARDIA Plan/Goal/Comment: Patient was seen in consultation by Cardiology Dr. Noyola, who along with pacemaker suraj and Dr. ribera body at [facility], evaluated pacemaker and determined that an atrial lead is nonfunctioning. As such, the patient will be transferred to [facility] today for replacement and repair of his malfunctioning pacemaker. (2) CHF (congestive heart failure) Acute I50.9 - HEART FAILURE, UNSPECIFIED systolic acute on chronic I50.23 - Acute on chronic systolic (congestive) heart failure Comment: Echo shows EF between 30 and 35% with global LV hypokinesis and dyssynergic septal motion. Continue home diuretic and salt restriction. Monitor weight. Compensated. (3) Nonsustained ventricular tachycardia Acute I47.2 - VENTRICULAR TACHYCARDIA Present on Admission: Yes Comment: As per cardiology. Keep K more than 4 magnesium more than 2. Really loaded with amiodarone. No further episodes of torsade (4) Syncope Acute R55 - SYNCOPE AND COLLAPSE Present on Admission: Yes unspecified R55 - Syncope and collapse Comment: Most likely due to cardiac arrhythmia. Continue telemetry monitoring (5) Biventricular cardiac pacemaker in situ Chronic Z95.0 - PRESENCE OF CARDIAC PACEMAKER Present on Admission: Yes (6) CKD (chronic kidney disease) Chronic N18.9 - CHRONIC KIDNEY DISEASE, UNSPECIFIED Present on Admission: Yes stage 3 (moderate) N18.3 - Chronic kidney disease, stage 3 (moderate) Comment: Monitor renal function maintain hydration avoid any nephrotoxins. Discharge Disposition: Trans. to Other Hospital ([facility]) Discharge Condition: Good Physician Follow up/Referrals: Gunjan Tatum, [employer] SERVICES MANAGER [Primary Care Provider] - One Week O2 Device: Room Air Diet at Discharge: Cardiac Activity: As Tolerated, No Heavy Lifting (nothing over 30 lbs), No Driving ( while using pain medications) - DC Summary Notes HPI/Notes: This is a pleasant 71-year-old male with an AICD was admitted to the hospital with syncope and found to have torsades. He was seen by Cardiology in consultation, found to have malfunctioning AICD with nonfunctioning atrial lead. He will be transferred to [facility] today for replacement. Here in the hospital, he was loaded with amiodarone has had no other episodes. Please see the hospital problems and discharge problems above for details of the hospital course including diagnostics and treatment. The plan of care including medications, prognosis, follow-up including alarm symptoms for which medical care should be sought were reviewed with the patient and any available family members/caretakers. The patient is agreeable to discharge today, and all questions were answered by me to their satisfaction. Hospital Course Note:: Discharge summary on patient named ZULEYKA MCLAIN admitted to [facility] on 10/10/16 by Jose Angel Daniels MD. Date of discharge is []. Total Time: 40 - Physical Exam Vital Signs: Last Vital Signs Temp 97.8 F 10/12/16 08:02 Pulse 79 10/12/16 08:02 Resp 18 10/12/16 08:02 BP 122/78 10/12/16 08:02 Pulse Ox 100 10/12/16 08:02 Oxygen Pulse Oxygen Saturation 100 O2 Device Room Air Oxygen Flow Rate Fraction of Inspired Oxygen ( FIO2) Constitutional: No apparent distress, Alert Oriented to: Time, Person, Place Exam: Resting comfortably in bed this morning, no acute complaints. - HEENT Head: Normal Eye: Normal Oropharynx: Normal ENT EAC: Normal TMJ: Normal Nose: No Symptoms Reported - Respiratory/Cardiovascular Respiratory: Diminished, Rhonchi Cardiovascular: Normal (RRR , Normal S1, S2. No murmurs, rubs, or gallops. PMI non-displaced. Carotids: no carotid bruits. No bradycardia or tachycardia. DP pulses 2+ bilaterally.) - GI Auscultation: Normal Palpation: Normal Tenderness: Non tender Rectal Exam: Deferred - Musculoskeletal Back: Normal Extremities: Edema - Integumentary Lymphatics: Normal - Neurologic Memory Impaired: Normal Cerebellar: Ataxia Mood Description: Anxious Thought: Coherent Perception: Normal
[2016-10-12 09:00] LABS: FREE T3 2.66 pg/mL (2.77-5.27); FREE T4 1.61 ng/dL (0.78-2.19)
[2016-10-12] MEDS ORDERED: METOPROLOL TARTRATE 25 MG TAB PO SCH (09:00)
[2016-10-12] MEDS: GLARGINE INSULIN (LANTUS) 100 UNITS/ML PEN SQ SCH (10:19)
[2016-10-12] MEDS: CALCIUM CARBONATE + VITAMIN D 500 MG TAB PO SCH (12:33)
[2016-10-12] MEDS: CHOLECALCIFEROL 1000 UNITS TAB PO SCH (12:33)
[2016-10-12 13:46] VITALS: BP 127/71; PULSE 102; TEMP 98.1
[2016-10-12] MEDS ORDERED: WARFARIN 3 MG TAB PO SCH (18:00)
== END 2016-10-12 13:30 | disposition short-term general hospital (02) | DRG 308 ==
LOC: ED 11:00 → PCU 13:38
PROVIDERS: ADMIT Internal Medicine; ATTEND Internal Medicine
DX: T82.110A Breakdown (mechanical) of cardiac electrode, initial encounter (principal); I50.23 Acute on chronic systolic (congestive) heart failure; I47.2 Ventricular tachycardia; I13.0 Hypertensive heart and chronic kidney disease with heart failure and stage 1 through stage 4 chronic kidney disease, or unspecified chronic kidney disease; Y83.1 Surgical operation with implant of artificial internal device as the cause of abnormal reaction of the patient, or of later complication, without mention of misadventure at the time of the procedure; R55 Syncope and collapse; J44.9 Chronic obstructive pulmonary disease, unspecified; J45.909 Unspecified asthma, uncomplicated; K21.9 Gastro-esophageal reflux disease without esophagitis; Z79.82 Long term (current) use of aspirin; Z79.01 Long term (current) use of anticoagulants; Z79.4 Long term (current) use of insulin; Z79.84 Long term (current) use of oral hypoglycemic drugs; Z87.891 Personal history of nicotine dependence; E11.22 Type 2 diabetes mellitus with diabetic chronic kidney disease; N18.3 Chronic kidney disease, stage 3 (moderate); E78.5 Hyperlipidemia, unspecified; Z79.899 Other long term (current) drug therapy
CPT/HCPCS: 36415; 71010; 80048; 80053; 80162; 80299; 81001; 82962; 83735; 83880; 84439; 84443; 84481; 84484; 85025; 85610; 85730; 93005; 93306; 96372; 96374; 99284; G0237; J0282; J3490; J7060